=== PATIENT | female | born 1980 | race Caucasian/White ===

== ENCOUNTER 2024-11-03 16:45 | Day surgery (SDC) | payer BC, SELFPAY ==
[2024-11-03] VITALS (12 sets, daily range): BP systolic 104–126; BP diastolic 58–95; BMI 21.6
--- NOTE | 2024-11-03 09:38 | ED.GENMED ---
History of Present Illness
<Renée Parker PA-C - Last Filed: 11/03/24 16:17>
General
Chief Complaint: Abdominal Pain
Source: patient
Exam Limitations: none
Time Seen by Provider: 11/03/24 09:27
History of Present Illness
History of Present Illness:
44yoF with no significant past medical history presenting for evaluation of abdominal pain. Symptoms initially began 2 nights ago after eating dinner. She reports eating pizza and drinking fine which is not unusual for her on a Monday night. Her
pain was initially generalized but has since migrated to the right lower quadrant. Pain radiates into her right lower back. Pain is worse with movement. She took Pepcid without any relief. She had a low grade temperature of 100 earlier today.
Her bowel movements have been normal. She is otherwise asymptomatic and denies any vomiting or urinary symptoms. Previous abdominal surgeries include a tummy tuck. Of note, patient finished a 10 day course of amoxicillin 3 days ago for a sinus
infection.
Phy Exam
<Renée Parker PA-C - Last Filed: 11/03/24 16:17>
General Physical Exam
General Presentation: well appearing and no apparent distress
General Skin: warm and dry
General Habitus: normal
General Mental: alert
ENT Exam
ENT Exam: normocephalic
Pulmonary Exam
Pulmonary Exam: no respiratory distress
Gastrointestinal Exam
Gastrointestinal Exam: soft, non distended and other (+Focal tenderness in RLQ at McBurney's point)
Neurological Exam
Neurological Exam: alert
Riley Coma Scale
Eye Opening: Spontaneous
Verbal Response: Oriented
Motor Response: Obeys Commands
GCS Total Score: 15
Skin Exam
Skin Exam: normal color and warm/dry
Psychiatric Exam
Psychiatric Exam: normal mood/affect
Course
<Renée Parker PA-C - Last Filed: 11/03/24 16:17>
Orders/Labs/Results
Orders:
Orders
11/03/24 09:34
Complete Blood Count/With Diff Urgent
Comprehensive Metabolic Panel Urgent
HCG, Serum Qualitative Screen Urgent
Lipase Urgent
11/03/24 09:36
0.9% Sodium Chloride 1000 ml [Nss] 1,000 ml IV BOLUS
Iohexol [Omnipaque] See Protocol PO NOW STA
11/03/24 09:37
CT Abd/pel W Iv And Oral Contr Urgent
Comment:
Reason For Exam: RLQ pain
Test Result ONCE
11/03/24 09:39
Add On- LAB Routine
Tests Added?: lipase, HCG qualitative
11/03/24 09:49
Urinalysis Reflex To Culture Urgent
Date Specimen was Collected: 11/03/24
Time Specimen was Collected: 09:45
11/03/24 13:15
Piperacillin/Tazo 4.5 Gram [Zosyn] 4.5 gram in 100 ml IV NOW
11/03/24 Dinner
NPO
Allow oral meds: Yes
Allow clear liquids: No
11/03/24 15:46
Sequential Compression Device [Pneumatic Compression Sleeves] As Directed
Type: Knee high
DX Deep Vein Thrombosis Video Routine
Abnormal Lab Results
11/03/24
09:34
Chloride 109 H mmol/L
(98-107)
Glucose 106 H mg/dl
(70-99)
11/03/24 09:34
11/03/24 09:34
Vital Signs
Initial and Last Documented VS:
Initial Vital Signs
Temp Pulse Resp BP Pulse Ox
98.2 F 107 18 121/84 100
11/03/24 09:04 11/03/24 09:04 11/03/24 09:04 11/03/24 09:04 11/03/24 09:04
Last Documented Vital Signs
Temp Pulse Resp BP Pulse Ox
98.3 F 80 16 114/66 100
11/03/24 11:44 11/03/24 11:44 11/03/24 11:44 11/03/24 11:44 11/03/24 11:44
<Bobo GonzaloBharti Neely, DO - Last Filed: 11/03/24 14:18>
Orders/Labs/Results
Orders:
Orders
11/03/24 09:34
Complete Blood Count/With Diff Urgent
Comprehensive Metabolic Panel Urgent
HCG, Serum Qualitative Screen Urgent
Lipase Urgent
11/03/24 09:36
0.9% Sodium Chloride 1000 ml [Nss] 1,000 ml IV BOLUS
Iohexol [Omnipaque] See Protocol PO NOW STA
11/03/24 09:37
CT Abd/pel W Iv And Oral Contr Urgent
Comment:
Reason For Exam: RLQ pain
Test Result ONCE
11/03/24 09:39
Add On- LAB Routine
Tests Added?: lipase, HCG qualitative
11/03/24 09:49
Urinalysis Reflex To Culture Urgent
Date Specimen was Collected: 11/03/24
Time Specimen was Collected: 09:45
11/03/24 13:15
Piperacillin/Tazo 4.5 Gram [Zosyn] 4.5 gram in 100 ml IV NOW
11/03/24 Dinner
NPO
Allow oral meds: Yes
Allow clear liquids: No
11/03/24 15:46
Sequential Compression Device [Pneumatic Compression Sleeves] As Directed
Type: Knee high
DX Deep Vein Thrombosis Video Routine
Abnormal Lab Results
11/03/24
09:34
Chloride 109 H mmol/L
(98-107)
Glucose 106 H mg/dl
(70-99)
11/03/24 09:34
11/03/24 09:34
Vital Signs
Initial and Last Documented VS:
Initial Vital Signs
Temp Pulse Resp BP Pulse Ox
98.2 F 107 18 121/84 100
11/03/24 09:04 11/03/24 09:04 11/03/24 09:04 11/03/24 09:04 11/03/24 09:04
Last Documented Vital Signs
Temp Pulse Resp BP Pulse Ox
98.3 F 80 16 114/66 100
11/03/24 11:44 11/03/24 11:44 11/03/24 11:44 11/03/24 11:44 11/03/24 11:44
<Renée Parker PA-C - Last Filed: 11/03/24 16:17>
MDM/Problems Addressed
Differential Diagnosis Includes:
44yoF here with abd pain x 2 days. Started generalized and has now migrated to the RLQ. VSS. She is well-appearing in no distress. There is tenderness at the McBurney's point on exam. Differential diagnosis includes but is not limited to:
Appendicitis, mesenteric adenitis, colitis, epiploic appendagitis, biliary colic, kidney stone, nonspecific abdominal pain
Initial ED plan: Check abdominal labs, UA, and CT abdomen. She declines analgesics.
<Renée Parker PA-C - Last Filed: 11/03/24 16:17>
*Pulse Oximetry
SaO2: 100
Oxygen Mode of Delivery: Room air
Patient hypoxic: no
*Critical Care Note
Total Time (30-74mins, 75-104mins- exclusive of procedures): Not Applicable
<Renée Parker PA-C - Last Filed: 11/03/24 16:17>
Update Note
Update Note:
CT shows mild acute appendicitis. No evidence of perforation. Labs unremarkable including normal white count. General surgery notified. IV Zosyn ordered and patient admitted for appendectomy.
ED Attending Note
<Renée Parker PA-C - Last Filed: 11/03/24 16:17>
-
Portions of this chart may have been created with voice recognition software.� Occasional wrong word or��sound alike� substitutions may have occurred due to the inherent limitations of voice recognition software.
<Bobo Neely DO - Last Filed: 11/03/24 14:18>
ED Attending Note
Patient seen and examined by attending physician: Yes
I performed the substantive portion of visit, reviewed & personally made and approve the management plan that is documented in note by myself or FLORESITA.: Yes
ED Attending Note:
I agree with Renée's note
Patient planing of abdominal pain. Pains been present for the past couple days. Migrated the right lower quadrant.
General: Awake, alert, no distress
Abdomen: Right lower quadrant tenderness
CT confirms the presence of appendicitis.
Lois to discussed with surgery.
Discharge Plan
Departure
Patient Disposition: Admit
Date of Disposition: 11/03/24
Time of Disposition: 13:51
Presentation/result/management discussed w/ accepting MD/: Dr. Roblero
Discharge Problem:
Acute appendicitis
Prescriptions:
No Action
cetirizine [Zyrtec] 10 mg Tablet
10 mg PO DAILY
Probiotic 10 billion cell Capsule
10,000 mmu cells PO DAILY
Nextstellis 3 mg- 14.2 mg (28) Tablet
1 tab PO DAILY
fluticasone propionate [Flonase] 50 mcg/actuation [place],Suspension
1 spray INTRANASAL DAILY
Referrals:
Trish Thompson MD [Family Provider, Internal Medicine]
Interventions
Interventions:
*Risk Screen - Suicide Last Done: 11/03/24 09:04
*General Assessment Last Done: 11/03/24 09:04
*Neglect/Abuse Screening Last Done: 11/03/24 09:04
*ED- Fall Risk Assessment Last Done: 11/03/24 09:31
*ED COVID-19 Vaccine History Last Done: 11/03/24 09:31
RC-Scixsv-Lhpwfjtwde Assessment Last Done: 11/03/24 09:31
Discharge Date and Time
Print Language: SINHALA
[2024-11-03] MEDS: OMNIPAQUE 50 ML PO (09:46)
[2024-11-03] MEDS: NSS 1000 IV ×2 (09:48→21:07)
[2024-11-03 09:51] LABS: Hematocrit 38.6 % (37.0-47.0); Hemoglobin 13.0 g/dL (12.0-16.0); Mean Corp Hgb Conc. 33.7 g/dL (33.0-37.0); Mean Corpuscular Volume 88.1 fL (81.0-99.0); Nucleated Red Blood Cells % 0 %; Platelet Count 279 10^3/uL (130-400); Red Cell Dist. Width 11.5 % (11.5-14.5)
[2024-11-03 10:06] LABS: Urine Character Slightly Cloudy (Clear)
[2024-11-03 10:06] LABS: ALT (SGPT) 18 U/L (0-35); AST (SGOT) 22 U/L (14-36); Albumin 4.4 g/dl (3.5-5.0); Alkaline Phosphatase 69 U/L (38-126); Blood Urea Nitrogen 13 mg/dl (7-17); Calcium 9.6 mg/dl (8.4-10.2); Carbon Dioxide 24 mmol/L (22-30); Chloride 109 mmol/L (98-107); Estimated Creatinine Clearance 108 ml/min; Glucose 106 mg/dl (70-99); Lipase 97 U/L (23-300); Potassium 4.1 mmol/L (3.5-5.1); Sodium 140 mmol/L (135-145); Total Protein 7.2 g/dl (6.3-8.2); eGFR > 60.00
[2024-11-03 11:57] LABS: HCG, Serum Qualitative Screen Negative
[2024-11-03] MEDS: ZOSYN 100 IV (13:25)
--- NOTE | 2024-11-03 16:03 | HPS.HSE ---
Family Physician
-
Family Physician: Trish Thompson
Chief Complaint
-
RLQ pain
History of Present Illness
This is a 44 yo female with a h/o x3, sbo secondary to UHR which resolved without surgery, and abdominoplasty with UHR and ?other hernias repaired with plastics 2 years ago with recent ABX for sinus infection x 10 days (amoxicillin) who
presents with pain which began Monday night into Monday morning in her abdomen. Initially, the pain was generalized and associated with nausea and she thought she had eaten something that upset her stomach while travelling to [facility] to visit
her son. She tried Pepto Bismol without much benefit. She denies vomiting but has had persistent nausea with anorexia. This morning, the pain localized to her right lower abdomen and she developed a low grade fever of 100 causing her to present for
evaluation. She denies constipation or diarrhea. She denies bladder changes. She is focally tender to the RLQ on exam.
Medical History
Past Medical History
Past Medical History: Reports None
Past Surgical History: Reports Other (abdominoplasty with umbilical hernia repair)
Social History
Tobacco: Non-smoker
Alcohol: None
Personal:
Living: With Family
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
Family History
Family History: Not pertinent
Allergies / Home Medications
Allergies reflects when Allergies were last updated in [facility].
Home Medications with original date entered in [facility]
Allergy/Medication List:
Patient Allergies
Allergy/AdvReac Type Severity Reaction Status Date / Time
No Known Allergies Allergy Verified 11/03/24 09:04
�Medication �Instructions �Recorded �Confirmed �Type
Lactobacillus acidophilus 10 10,000 mmu cells PO DAILY 11/03/24 11/03/24 History
billion cell capsule (Probiotic)
cetirizine 10 mg tablet (Zyrtec) 10 mg PO DAILY 11/03/24 11/03/24 History
drospirenone 3 mg-estetrol 14.2 mg 1 tab PO DAILY 11/03/24 11/03/24 History
(28) tablet (Nextstellis)
fluticasone propionate 50 1 spray intranasal DAILY 11/03/24 11/03/24 History
mcg/actuation nasal
spray,suspension
Review of Systems
-
A 12 point ROS was completed and negative except as noted: Yes
Physical Exam
Vital Signs
Vital Signs
Temp Pulse Resp BP Pulse Ox
98.3 F 80 16 114/66 100
11/03/24 11:44 11/03/24 11:44 11/03/24 11:44 11/03/24 11:44 11/03/24 11:44
Physical Exam
General: Well Developed and Well Nourished
HEENT: Moist mucous membranes
GI: Soft, Non Distended and Tender (RLQ)
Skin: Warm and Dry
Neuro: Awake, Alert and AO x 3
Psych: Calm
Laboratory Results
-
11/03/24 09:34
11/03/24 09:34
Laboratory Results
Total Bilirubin 0.5 mg/dl (0.2-1.3) 11/03/24 09:34
AST 22 U/L (14-36) 11/03/24 09:34
ALT 18 U/L (0-35) 11/03/24 09:34
Alkaline Phosphatase 69 U/L (38-126) 11/03/24 09:34
Lipase 97 U/L (23-300) 11/03/24 09:34
Data Reviewed
-
CT Scan: Image Personally Visualized and interpreted, Report Reviewed by me, Discussed with Physician, Discussed with Patient and Discussed with Family
Lab Data: Labs Reviewed by me, Discussed with Physician, Discussed with Patient and Discussed with Family
Old Records: Reviewed
Impression/Plan
-
IMPRESSION: 44 yo female s/p ABX x10 days for sinus infection (completed 3 days ago) presenting with abdominal pain over the last 48 hours localizing to her RLQ with associated low grade fever of 100, nausea and anorexia. CT imaging consistent with
acute appendicitis without evidence of perforation or abscess. Exam and history consistent with appendicitis. Labs normal. Afebrile. VSS.
Discussed nonoperative and operative treatment measures. Would like to pursue operative intervention.
PLAN:
NPO for OR
Zosyn given in the ED
Antiemetics/analgesics prn
SCDs for VTE ppx
Anticipate OR early this evening for laparoscopic appendectomy
--- NOTE | 2024-11-03 19:15 | W.IMMPOSTOP ---
Surgical Immed Post Op Note
-
Primary Surgeon: Osbaldo
Pre-op Diagnosis: Acute appendicitis
Post-op Diagnosis: Same
Procedure Performed: Laparoscopic appendectomy
Anesthesia Type: GETA
Specimen / Cultures: Appendix
Estimated Blood Loss: 5cc
Complications: None immediate
Operative Findings: Mildly inflamed appendix, no free fluid
[2024-11-03] MEDS: DILAUDID 0.25 MG IV (19:45)
--- NOTE | 2024-11-03 21:00 | PTCARENOTE ---
Addendum entered by Olimpia Patiño RN 11/04/24 03:23:
Pt arrived to floor @20:08. Pt admitted for acute appendicitis. She had a laparascopic appendectomy. Arrived to the unit with 3 lap sites and 1 puncture site on the abdomen. Vital signs obtained (see documentation). Care ongoing.
Original Note:
Received report from Noemy SOLIMANU RN @1999
[2024-11-03] MEDS: ROXICODONE 5 MG PO (21:46)
[2024-11-04] MEDS: DILAUDID 0.5 MG IV (01:05)
[2024-11-04] MEDS: ZOFRAN 4 MG IV ×2 (01:06→07:51)
[2024-11-04 03:20] VITALS: BP 97/64
[2024-11-04 04:13] VITALS: BP 97/64
[2024-11-04 07:40] VITALS: BP 117/57
[2024-11-04] MEDS: TORADOL 10 MG IV (07:51)
--- NOTE | 2024-11-04 08:52 | W.PN.GS2 ---
Today's Communication / Plan
-
DC
Assessment / Plan
-
44F POD1 s/p lap appy for acute appendicitis
Doing well, meets criteria for DC, discussed shoulder and gas pain, recommended ambulation and time
Subjective Data
-
Date of Service: November 04, 2024
AFVSS, c/o gas pain and right shoulder pain, ambulating, voiding, macey PO
Objective Data
-
Intake and Output
11/03/24 11/04/24 11/05/24
06:59 06:59 06:59
Intake Total 930 / 930
Output Total 200 / 200
Balance 730 / 730
Intake:
IV fluids (Total) 930 / 930
Normosol 200 / 200
Output:
Urine, Voided 200 / 200
Vital Signs
Temp Pulse Resp BP Pulse Ox
98 F 78 16 117/57 97
11/04/24 07:40 11/04/24 07:40 11/04/24 07:40 11/04/24 07:40 11/04/24 07:40
Lab Results
11/03/24 09:34
11/03/24 09:34
Calcium 9.6 mg/dl (8.4-10.2) 11/03/24 09:34
Total Bilirubin 0.5 mg/dl (0.2-1.3) 11/03/24 09:34
AST 22 U/L (14-36) 11/03/24 09:34
ALT 18 U/L (0-35) 11/03/24 09:34
Alkaline Phosphatase 69 U/L (38-126) 11/03/24 09:34
Total Protein 7.2 g/dl (6.3-8.2) 11/03/24 09:34
Albumin 4.4 g/dl (3.5-5.0) 11/03/24 09:34
Physical Exam
-
Gen: NAD
Abd: soft, approp ttp, incisions cdi with glue
Patient has a maharaj catheter: No
Patient has a central line: No
--- NOTE | 2024-11-04 08:54 | W.DS.TRANS ---
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
-
Discharge Instructions:
Discharge Diagnosis/Procedures Acute appendicitis status post laparoscopic
appendectomy
Diet As tolerated,Regular
Additional Diets Eat small meals as tolerated, expect some
bloating at first
Activity No strenuous activity
Driving Restrictions No driving for 24 hours
Bathing Restrictions OK to Shower
Wound Care Allow the glue over your incisions to flake off
on its own over the next 2-3 weeks. Avoid
scrubbing or picking it off.
Call your surgeon if you have fever >100.5,
nausea with vomiting or worsening pain.
Instructions:
Stand-Alone Forms:
Changes to Home Medications: No
Discharge Medications:
DC Medications w/original date entered in [facility]
Lactobacillus acidophilus 10 billion cell capsule (Probiotic) 10,000 mmu cells PO DAILY Supplement 11/03/24
cetirizine 10 mg tablet (Zyrtec) 10 mg PO DAILY Allergies 11/03/24
drospirenone 3 mg-estetrol 14.2 mg (28) tablet (Nextstellis) 1 tab PO DAILY 11/03/24
fluticasone propionate 50 mcg/actuation nasal spray,suspension 1 spray intranasal DAILY Allergies 11/03/24
Home Medication Changes
Pending Results: No
--- NOTE | 2024-11-04 09:20 | CM ---
Patient seen at bedside with present at bedside. Patient state that she is planning on discharge today. Patient states she has to eat and walk and then she will be discharged. Patient states that she lives in a 2 story home with no DME, she
uses Dr. Thompson and she uses the [facility] in [place]. CM will continue to follow for discharge planning needs.
Plan; home with no needs anticipated at this time
--- NOTE | 2024-11-05 12:15 | OR.RPT ---
Addendum entered and electronically signed by Jaskaran Roblero MD 11/05/24 12:17:
Correction: DOS 11/03/24
Original Note:
Operative Report
Operative Report
Primary Surgeon: Osbaldo
Pre-op Diagnosis: Acute appendicitis
Post-op Diagnosis: Same
Procedure Performed: Laparoscopic appendectomy
Anesthesia Type: GETA
Specimen / Cultures: Appendix
Estimated Blood Loss: 5cc
Complications: None immediate
Operative Findings: Mildly inflamed appendix, no free fluid
Date of Surgery: 11/04/24
Indications: This 44F developed right lower quadrant abdominal pain and on workup was found to have acute appendicitis. Laparoscopic appendectomy was elected.
Description of procedure: The patient was placed on the operating table in the supine position. General anesthesia was induced. A time-out was completed verifying correct patient, procedure, site, positioning, and special equipment prior to
beginning this procedure. An orogastric tube was placed. The abdomen was prepped and draped in the usual sterile fashion. A stab incision was made in left upper quadrant and the Veress needle was inserted. Proper position was confirmed by aspiration
and saline meniscus test. The abdomen was insufflated with carbon dioxide to a pressure of 12 mmHg. The patient tolerated insufflation well.
A 5mm optical trocar was then inserted at the left lower quadrant. The laparoscope was inserted and the abdomen inspected. No injuries from initial trocar placement or Veress needle insertion were noted. Additional trocars were then inserted in the
following locations: a 12-mm trocar at the umbilicus and a 5-mm trocar midline in the suprapubic space. The abdomen was inspected and no abnormalities were found. The table was placed in the Trendelenburg position with the right side up. The tip of
the appendix was gently grasped with an atraumatic grasper and retracted toward the patient�s feet and abdominal wall. This maneuver exposed the appendiceal blood supply which was controlled with the Ligasure device. Following this, a laparoscopic
linear cutting stapler with a 45mm muro load was deployed and used to transect the appendix at its base. The appendix was placed in an endoscopic retrieval bag, removed through the umbilical port, and passed off the table as a specimen.
We then turned our attention to the staple line, which was noted to be hemostatic. The pelvis was inspected and no free fluid was identified. The umbilical trocar site was closed at the fascial level laparoscopically with 2-0 PDS under direct
vision. Secondary trocars were removed under direct vision and noted to be hemostatic. The laparoscope was withdrawn and the abdomen was allowed to collapse. The skin was closed with subcuticular sutures of 4-0 monocryl and topical skin adhesive.
The orogastric tube was removed.
The patient tolerated the procedure well and was taken to the postanesthesia care unit in stable condition.
== END 2024-11-04 10:57 | disposition home or self-care (01) ==
LOC: SDS 16:45
PROVIDERS: Physician Assistant; ATTENDING PHYSICIAN Surgery; EMERGENCY PHYSICIAN Emergency Medicine; FAMILY PHYSICIAN Internal Medicine
DX: K35.80 Unspecified acute appendicitis (principal)
CPT/HCPCS: 44970; 74177; 80053; 81003; 83690; 84703; 85025; 88304; 96365; 99285; Q9967

== ENCOUNTER 2024-11-14 11:15 | Emergency (ER) | payer BC, SELFPAY ==
[2024-11-14 11:20] VITALS: BP 128/89
--- NOTE | 2024-11-14 12:06 | ED.GENMED ---
History of Present Illness
General
Chief Complaint: Post Operative Problem(s)
Time Seen by Provider: 11/14/24 11:36
History of Present Illness
History of Present Illness:
44-year-old female presents the emergency department for evaluation of right leg discomfort beginning yesterday. She is concerned for DVT due to recent appendectomy. Denies distal paresthesias. Denies abdominal pain at this time
Review of Systems
Review of Systems
Allergies reviewed?: Yes
All Other Systems: ROS reviewed and negative except as documented in HPI and ROS
Phy Exam
Physical Exam
Physical Exam:
GEN: Well appearing, NAD, WDWN
HEENT: Oral mucosa moist, no scleral icterus
Cardiac: Regular rate
Lung: No respiratory distress, no tachypnea
MSK: No gross deformity or injuries, no lower extremity edema, strong dorsalis pedis and posterior tibialis pulses, normal range of motion to the right hip without elicited pain
Skin: Good color, no pallor or jaundice, no rashes
Neuro: AO x3, moves all extremities freely
Psych: Calm, cooperative
Course
Orders/Labs/Results
Orders:
Orders
11/14/24 12:05
Venous Doppler Lwr Ext Rt [US Periph Venous LOWER Ext RT] Urgent
Comment:
Reason For Exam: RLE pain s/p appy
Vital Signs
Initial and Last Documented VS:
Initial Vital Signs
Temp Pulse Resp BP Pulse Ox
98.2 F 78 18 128/89 99
11/14/24 11:20 11/14/24 11:20 11/14/24 11:20 11/14/24 11:20 11/14/24 11:20
Last Documented Vital Signs
Temp Pulse Resp BP Pulse Ox
98.2 F 78 16 128/89 99
11/14/24 11:20 11/14/24 11:20 11/14/24 13:39 11/14/24 11:20 11/14/24 12:06
MDM/Problems Addressed
MDM/Problems Addressed:
DVT study obtained due to recent surgery, this was unremarkable, patient reassured
*Pulse Oximetry
SaO2: 99
Patient hypoxic: no
*Critical Care Note
Total Time (30-74mins, 75-104mins- exclusive of procedures): Not Applicable
ED Attending Note
-
Portions of this chart may have been created with voice recognition software.� Occasional wrong word or��sound alike� substitutions may have occurred due to the inherent limitations of voice recognition software.
Discharge Plan
Departure
Patient Disposition: Home (Routine Discharge)
Date of Disposition: 11/14/24
Time of Disposition: 13:39
Patient with high blood pressure during this ER visit?: No
Discharge Problem:
Leg pain, right
Prescriptions:
No Action
cetirizine [Zyrtec] 10 mg Tablet
10 mg PO DAILY
Probiotic 10 billion cell Capsule
10,000 mmu cells PO DAILY
Nextstellis 3 mg- 14.2 mg (28) Tablet
1 tab PO DAILY
fluticasone propionate 50 mcg/actuation [place],Suspension
1 spray INTRANASAL DAILY
Referrals:
Trish Thompson MD [Family Provider, Internal Medicine]
Activity Restrictions/Additional Instructions:
Your ultrasound showed no evidence for DVT. If your hip pain continues please follow-up with your surgeon as this could represent an abnormal fluid collection near the surgical site however at this time there is no clinical sign that this is
occurring
Interventions
Interventions:
*Risk Screen - Suicide Last Done: 11/14/24 13:05
*General Assessment Last Done: 11/14/24 13:05
*Neglect/Abuse Screening Last Done: 11/14/24 13:05
*ED- Fall Risk Assessment Last Done: 11/14/24 13:05
*Nursing Disposition Last Done: 11/14/24 13:48
ED-Musculoskeletal Assessment Last Done: 11/14/24 13:05
ED-Skin Assessment Last Done: 11/14/24 13:05
Discharge Date and Time
Discharge Date/Time: 11/14/24 13:49
Print Language: ALBANIAN
== END 2024-11-14 13:49 | disposition home or self-care (01) ==
LOC: EMR 11:15
PROVIDERS: EMERGENCY PHYSICIAN Emergency Medicine; FAMILY PHYSICIAN Internal Medicine
DX: M79.604 Pain in right leg (principal)
CPT/HCPCS: 99284; 93971